=== PATIENT | female | born 1930 | race Caucasian/White ===

== ENCOUNTER 2016-04-20 08:56 | Day surgery (SDC) | payer MEDICARE, MEDICAID ==
[~2016-04-20 08:56] MED LIST: Lactated Ringers 1,000 ML IV SCH
[2016-04-20] MEDS ORDERED: Bupivacaine 0.25%/EPINEPHrine 1:200,000 30 ML SDV ONE (11:03)
[2016-04-20] MEDS ORDERED: Propofol 200 MG/20 ML SDV ONE (11:13)
[2016-04-20] MEDS ORDERED: Bacitracin Oint 1 GM U/D Packet ONE (11:29)
[2016-04-20 12:46] VITALS: BP 148/70
--- NOTE | 2016-04-20 14:38 | OR ---
PREOPERATIVE DIAGNOSIS: Skin cancer, left cheek needing wide excision. POSTOPERATIVE DIAGNOSIS: Skin cancer, left cheek needing wide excision. PROCEDURE PROPOSED: Wide excision of squamous cell carcinoma, left cheek. PROCEDURE DONE: Wide excision of squamous cell carcinoma, left cheek. 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 I felt it was too large of an area to do in the clinic. I therefore had her come to the operating room for some sedation. TECHNIQUE: The patient was brought to the operative suite, given some IV sedation. Her left cheek area was sterilely prepped and draped. The skin was marked with a skin marker to elliptically excise the lesion, which measured 2.5 cm in its greatest dimension. The area was then locally anesthetized with 0.25% Marcaine with epinephrine. The lesion was elliptically excised full-thickness into the subcutaneous tissue. This was basically performed with cautery to control bleeding. The specimen was then submitted for pathologic examination, and the incision was then closed in a layered fashion with interrupted 3-0 Vicryl and the subcutaneous tissue followed by subcuticular stitch of 4-0 Vicryl on the skin level with the layered incision closure measuring 4.0 cm. Antibiotic ointment was applied. She tolerated the procedure well and was taken back to day surgery in good condition. SCM: 04/20/2016 11:44:09 MODL: 04/20/2016 12:24:07 /[id number]
== END 2016-04-20 14:00 | disposition home or self-care (01) ==
LOC: VM.SDS 08:56
PROVIDERS: ATTEND Surgery
DX: L57.0 Actinic keratosis (principal); L57.8 Other skin changes due to chronic exposure to nonionizing radiation; Z88.0 Allergy status to penicillin; Z88.2 Allergy status to sulfonamides; Z91.09 Other allergy status, other than to drugs and biological substances; I10 Essential (primary) hypertension; F41.9 Anxiety disorder, unspecified; E78.5 Hyperlipidemia, unspecified; F32.9 Major depressive disorder, single episode, unspecified; Z79.82 Long term (current) use of aspirin; Z79.899 Other long term (current) drug therapy
CPT/HCPCS: 11443; 12051; J2704; J7120; 00300; 88305